=== PATIENT | male | born 1980 | race Caucasian/White ===

== ENCOUNTER 2020-06-21 22:00 | Emergency (ER) | payer SELFPAY ==
[~2020-06-21] VITALS: Ht 188 cm; Wt 97.7 kg
--- NOTE | 2020-06-21 22:41 | PHYS DOC ---
Past Medical History Past Medical History: No Pertinent History Past Surgical History: No Surgical History Smoking Status: Current Every Day Smoker Alcohol Use: None Drug Use: None Social History Past marijuana and methamphetamine use. General Adult EDM: Chief Complaint: SHORTNESS OF BREATH HPI: HPI: Patient is a 40 year old white male who presents with shortness of breath. He has a history of positive asymptomatic COVID infection and recent incarceration. He is a current smoker. This began today while at rest. He reports difficulty breathing when he tried to lay flat on bed and on his left side. He states pain is located around his sternum and does not radiate. Pain is described as sharp and rated 6/10. He has not had any similar events. He states he was working outside earlier today. Patient had vomiting episode after getting out of bed and denies any blood. Patient also complains of coughing fits without blood. Patient denies any recent travel, large crowds without a mask, and denies any long car or plane rides. He denies any family history of heart or lung disease. Denies fever or chills. Denies trauma. Denies leg swelling or calf tenderness. Review of Systems: Review of Systems: Constitutional: Denies fever or chills Eyes: Denies redness or eye pain HENT: Denies nasal congestion or sore throat Respiratory: Admits cough and shortness of breath Cardiovascular: Admits chest pain. Denies palpitations GI: Denies abdominal pain, nausea, or vomiting : Denies dysuria or hematuria Musculoskeletal: Denies back pain or joint pain Integument: Denies rash or skin lesions Neurologic: Denies headache, focal weakness or sensory changes Complete systems were reviewed and found to be within normal limits, except as documented in this note. Heart Score: HEART Score for Chest Pain: HEART Score for Chest Pain Response (Comments) Value History Slighlty/Non-Suspicious 0 ECG Normal 0 Age < 45 0 Risk Factors No Risk Factors 0 Troponin < Normal Limit 0 Total 0 Current Medications: Current Medications Medications (Trade) Dose Ordered Sig/Kyle Start Time Stop Time Status Last Admin Dose Admin Albuterol/ Ipratropium (Duoneb) 3 ml 1X ONCE 06/21/20 22:45 06/21/20 22:46 UNV Dexamethasone Sodium Phosphate (Decadron) 10 mg 1X ONCE 06/21/20 22:45 06/21/20 22:46 UNV Ketorolac Tromethamine (Toradol 15mg Vial) 15 mg 1X ONCE 06/21/20 22:45 06/21/20 22:46 UNV Ondansetron HCl (Zofran) 4 mg 1X ONCE 06/21/20 22:45 06/21/20 22:46 UNV Sodium Chloride 1,000 ml @ 1,000 mls/hr 1X ONCE 06/21/20 22:45 06/21/20 23:44 UNV Allergies: Allergies: Allergies Coded Allergies Type Severity Reaction Last Updated Verified No Known Drug Allergies 06/21/20 No Physical Exam: PE: Constitutional: Well developed, well nourished, minimal acute distress, non- toxic appearance HENT: Normocephalic, atraumatic Eyes: Conjunctiva normal, no discharge Neck: Normal range of motion, no tenderness, supple Lungs & Thorax: No respiratory distress, equal chest rise and fall, diffuse wheezing Abdomen: Soft, no tenderness Skin: Warm, dry, no erythema, no rash Extremities: No tenderness, ROM intact, no edema Neurologic: Alert and oriented X 3, no focal deficits noted Psychologic: Affect normal, judgment normal Current Patient Data: Vital Signs: Vital Signs Date Time Temp Pulse Resp B/P (MAP) Pulse Ox O2 Delivery O2 Flow Rate FiO2 06/21/20 22:02 98.9 127 24 168/90 (116) 95 Room Air 98.9 EKG: EKG: Findings: HR 96BPM Intervals - [place] 152ms, QRS 84ms, QT 358ms Interpretation: Sinus rhythm, R-S transition zone in V leads displaced to the right, incomplete right bundle branch block, otherwise normal Radiology/Procedures: Radiology/Procedures: PROCEDURE: CHEST AP ONLY AP chest. HISTORY: Short of air AP view was taken of the chest. Lungs are clear. Heart is normal in size. There is no pleural effusion. IMPRESSION: 1. No acute chest disease. Electronically signed by: Dony Hughes MD (06/21/2020 11:36 PM) [id number] Course & Med Decision Making: Course & Med Decision Making Patient is a 40 yo white male who presents for shortness of breath. SOB began earlier tonight while at rest with pleurisy. He has a history of asymptomatic COVID and recent incarceration. PE was pertinent for diffuse wheezing. Patient was treated with fluids, dexamethasone, ketorlac, and albuterol/ipratropium treatment with significant improvement in symptoms. Pertinent Labs and Imaging studies reviewed and were negative. Patient stable for discharge with outpatient follow-up with PCP. Discussed findings and plan with patient, who acknowledges understanding and agreement. Daina Disclaimer: Daina Disclaimer: This electronic medical record was generated, in whole or in part, using a voice recognition dictation system. Departure Departure Impression: Primary Impression: Bronchitis Disposition: 01 DC HOME SELF CARE/HOMELESS Condition: STABLE Referrals: NON,STAFF (PCP) Patient Instructions: Acute Bronchitis, Jkew-rh-Xlrt Scripts Prednisone (PREDNISONE) 20 Mg Tablet 2 TAB PO DAILY, #8 TAB Start this prescripton tomorrow, Saturday06/22/2020 Prov: RHONA DORSEY DO 06/21/20 Albuterol Sulfate (Proair Hfa) 8.5 Gm Hfa.aer.ad 2 PUFF IH PRN Q4-6HRS PRN for wheezing, #1 INHALER 0 Refills Prov: RHONA DORSEY DO 06/21/20 RHONA DORSEY DO Jun 21, 2020 22:41
[2020-06-21 22:44] LABS: BASO % 0 % (0-3); EOS # 0.2 x10^3/uL (0.0-0.7); EOS % 1 % (0-3); HEMATOCRIT 45.3 % (39.0-53.0); HEMOGLOBIN 15.5 g/dL (13.0-17.5); LYMPH # 4.1 x10^3/uL (1.0-4.8); LYMPH % 34 % (24-48); MEAN CORPUSCULAR HEMOGLOBIN 29 pg (25-35); MEAN CORPUSCULAR HGB CONC 34 g/dL (31-37); MEAN CORPUSCULAR VOLUME 85 fL (79-100); MONO # 0.8 x10^3/uL (0.0-1.1); MONO % 7 % (0-9); NEUT # 6.9 x10^3/uL (1.8-7.7); NEUT % 57 % (31-73); PLATELET COUNT 386 x10^3/uL (140-400); RED BLOOD COUNT 5.35 x10^6/uL (4.30-5.70); RED CELL DISTRIBUTION WIDTH 14.2 % (11.5-14.5)
[2020-06-21] MEDS ORDERED: IPRATRPIUM/ALBUTEROL 0.5/2.5MG 3 ML NEBU. NEB ONE (22:45)
[2020-06-21] MEDS ORDERED: KETOROLAC 15 MG/ML VIAL. IVP ONE (22:45)
[2020-06-21] MEDS ORDERED: DEXAMETHASONE SOD PHOS 20 MG/5 ML VIAL. IVP ONE (22:45)
[2020-06-21] MEDS ORDERED: IV NORMAL SALINE 1000ML BAG 1,000 ML IV ONE (22:45)
[2020-06-21] MEDS ORDERED: ONDANSETRON PF 4 MG/2 ML VIAL. IVP ONE (22:45)
[2020-06-21 22:54] LABS: D-DIMER 0.43 ug/mlFEU (0.00-0.50)
[2020-06-21 22:57] LABS: CALCIUM 8.6 mg/dL (8.5-10.1); CREATININE 1.2 mg/dL (0.7-1.3); GFR 67.8; POTASSIUM 4.3 mmol/L (3.5-5.1)
[2020-06-21 23:03] LABS: ALBUMIN/GLOBULIN RATIO 1.2 (1.0-1.7); TOTAL BILIRUBIN 0.5 mg/dL (0.2-1.0); TOTAL PROTEIN 7.4 g/dL (6.4-8.2)
--- NOTE | 2020-06-21 23:39 | RAD ---
AP chest. HISTORY: Short of air AP view was taken of the chest. Lungs are clear. Heart is normal in size. There is no pleural effusion. IMPRESSION: 1. No acute chest disease. Electronically signed by: Dony Hughes MD (06/21/2020 11:36 PM) [id number]
[2020-06-21 23:44] VITALS: BP 117/71
[2020-06-21] MEDS ORDERED: ALBU2.5V8 IH (23:44)
[2020-06-21] MEDS ORDERED: PRED20TA PO (23:44)
--- NOTE | 2020-06-22 11:53 | EKG ---
[facility] [address] [place] [address] Test Date: 2020-06-21 Test Time: 22:46:22 Pat Name: DAVID JULES Department: Room: Gender: M Barrel Header: : 1980 Requested By: RHONA DORSEY Order Number: [id number] Reading MD: Measurements Intervals [place] Rate: 96 P: 55 [place]: 152 QRS: 57 QRSD: 84 T: 34 QT: 358 QTc: 453 Interpretive Statements SINUS RHYTHM R-S TRANSITION ZONE IN V LEADS DISPLACED TO THE RIGHT INCOMPLETE RIGHT BUNDLE BRANCH BLOCK OTHERWISE NORMAL ECG RI6.02 No previous ECG available for comparison
== END 2020-06-21 23:53 | disposition home or self-care (01) ==
LOC: ER 22:00
DX: J40 Bronchitis, not specified as acute or chronic (principal); I45.10 Unspecified right bundle-branch block; F17.200 Nicotine dependence, unspecified, uncomplicated; F15.90 Other stimulant use, unspecified, uncomplicated; F12.90 Cannabis use, unspecified, uncomplicated
CPT/HCPCS: 36415; 71045; 80053; 82553; 83605; 83880; 84484; 85025; 85379; 85730; 93005; 94640; 96361; 96374; 96375; 99285; J1100; J1885; J7030